=== PATIENT | male | born 1990 | race Caucasian/White ===

== ENCOUNTER 2017-01-13 14:42 | Inpatient (IN) | payer SELFPAY ==
[2017-01-13 14:45] VITALS: BMI 24.5
--- NOTE | 2017-01-13 16:29 | HP ---
COWS - Scale Resting Pulse: 0= [place] 80 or Below Sweatin=Flushed/Facial Moisture Restless Observation: 1= Difficult to Sit Still Pupil Size: 0= Normal to Room Light Bone or Joint Aches: 2= Severe Diffuse Aches Runny Nose/ Eye Tearin= Runny Nose/Eyes GI Upset > 30mins: 1= Stomach Cramp Tremor Observation: 2= Slight Tremor Visible Yawning Observation: 1= 1-2x During Session Anxiety or Irritability: 2=Irritable/Anxious Goose Flesh Skin: 0=Smooth Skin COWS Score: 13 Admission [facility] Chief Complaint: withdrawal sx Allergies/Adverse Reactions: Allergies Allergy/AdvReac Type Severity Reaction Status Date / Time No Known Allergies Allergy Verified 01/13/17 16:51 History of Present Illness: 26 years old male with long history of opiate, nicotine dependence, has chronic back pain, and depression is admitted to detox Exam Limitations: No Limitations - Ebola screening Have you traveled outside of the country in the last 21 days: No Have you had contact with anyone from an Ebola affected area: No Have you been sick,other than usual withdrawal symptoms: No Do you have a fever: No - Review of Systems Constitutional: Chills, Loss of Appetite, Changes in sleep, Unintentional Wgt. Loss, Unexplained wgt Loss EENT: reports: No Symptoms Reported Respiratory: reports: No Symptoms reported Cardiac: reports: No Symptoms Reported GI: reports: Nausea, Poor Appetite, Poor Fluid Intake, Indigestion, Abdominal cramping : reports: No Symptoms Reported Musculoskeletal: reports: Back Pain, Joint Pain, Muscle Pain, Neck Pain Integumentary: reports: Change in Color, Erythema (left hand) Neuro: reports: Tremors Endocrine: reports: No Symptoms Reported Hematology: reports: No Symptoms Reported Psychiatric: reports: Judgement Intact, Orientated x3, Anxious, Depressed Other Systems: Reviewed and Negative Patient History - Patient Medical History Hx Anemia: No Hx Asthma: No Hx Chronic Obstructive Pulmonary Disease (COPD): No Hx Cancer: No Hx Cardiac Disorders: No Hx Congestive Heart Failure: No Hx Hypertension: No Hx Hypercholesterolemia: No Hx Pacemaker: No HX Cerebrovascular Accident: No Hx Seizures: No Hx Dementia: No Hx Diabetes: No Hx Gastrointestinal Disorders: Yes Hx Liver Disease: No Hx Genitourinary Disorders: No Hx Sexually Transmitted Disorders: No Hx Renal Disease (ESRD): No Hx Thyroid Disease: No Hx Human Immunodeficiency Virus (HIV): No (TESTED LAST 2014 NEGATIVE) Hx Hepatitis C: No Hx Depression: Yes Hx Suicide Attempt: No Hx Bipolar Disorder: No Hx Schizophrenia: No - Patient Surgical History Past Surgical History: Yes Hx Neurologic Surgery: No Hx Cataract Extraction: No Hx Cardiac Surgery: No Hx Lung Surgery: No Hx Breast Surgery: No Hx Breast Biopsy: No Hx Abdominal Surgery: No Hx Appendectomy: Yes (1993) Hx Cholecystectomy: No Hx Genitourinary Surgery: No Hx Orthopedic Surgery: No Anesthesia Reaction: No - PPD History Previous Implant?: Yes Documented Results: Negative w/proof Implanted On Prior [facility] Admission?: Yes Date: 12/18/15 Results: 0 mm PPD to be Administered?: Yes - Smoking Cessation Smoking history: Current every day smoker Have you smoked in the past 12 months: Yes Aproximately how many cigarettes per day: 20 Cigars Per Day: 0 Hx Chewing Tobacco Use: No Initiated information on smoking cessation: Yes 'Breaking Loose' booklet given: 01/13/17 - Substance & Tx. History Hx Alcohol Use: No Hx Substance Use: Yes Substance Use Type: Cocaine, Opiates Hx Substance Use Treatment: Yes - Substances Abused Heroin Route: Injection Frequency: Daily Amount used: 20 bags Age of first use: 19 Date of Last Use: 01/13/17 Cocaine Route: Injection Frequency: Daily Amount used: $40 Age of first use: 14 Date of Last Use: 01/11/17 Family Disease History - Family Disease History Family Disease History: [place]: Father (LUNG), Other: Mother (ALCOHOLIC) Admission Physical Exam BHS - Vital Signs Vital Signs: Vital Signs - 24 hr 01/13/17 14:44 Temperature 96.1 F L Pulse Rate 62 Respiratory 16 Rate Blood Pressure 100/61 - Physical General Appearance: Yes: Appropriately Dressed, Mild Distress, Thin, Tremorous, Irritable, Sweating, Anxious HEENTM: Yes: Hearing grossly Normal, Normal ENT Inspection, Normocephalic, Normal Voice Respiratory: Yes: Chest Non-Tender, Lungs Clear, Normal Breath Sounds, No Respiratory Distress, No Accessory Muscle Use Neck: Yes: Supple, Trachea in good position Breast: Yes: Breasts Symetrical Cardiology: Yes: Regular Rhythm, Regular Rate, S1, S2 Abdominal: Yes: Non Tender, Soft, Increased Bowel Sounds Genitourinary: Yes: Within Normal Limits Back: Yes: Normal Inspection Musculoskeletal: Yes: full range of Motion, Gait Steady, Back pain, Muscle Pain Extremities: Yes: Normal Range of Motion, Non-Tender, Tremors Neurological: Yes: Fully Oriented, Alert, Motor Strength 5/5, Normal Response, Depressed Affect Integumentary: Yes: Warm, Track Gaines Lymphatic: Yes: Within Normal Limits - Diagnostic (1) Alcohol dependence with uncomplicated withdrawal Current Visit: Yes Status: Acute (2) Cocaine dependence, uncomplicated Current Visit: Yes Status: Chronic (3) GERD (gastroesophageal reflux disease) Current Visit: Yes Status: Chronic Qualifiers: Esophagitis presence: without esophagitis Qualified Code(s): K21.9 - Gastro-esophageal reflux disease without esophagitis (4) Nicotine dependence Current Visit: Yes Status: Acute Qualifiers: Nicotine product type: cigarettes Substance use status: in withdrawal Qualified Code(s): F17.213 - Nicotine dependence, cigarettes, with withdrawal (5) Weight loss Current Visit: Yes Status: Acute (6) Depression Current Visit: Yes Status: Suspected Qualifiers: Depression Type: dysthymia Qualified Code(s): F34.1 - Dysthymic disorder (7) Cellulitis and abscess of hand Current Visit: Yes Status: Acute (8) Chronic low back pain Current Visit: Yes Status: Chronic Qualifiers: Back pain laterality: bilateral Sciatica presence: without sciatica Qualified Code(s): M54.5 - Low back pain; G89.29 - Other chronic pain Cleared for Admission [facility] - Detox or Rehab [facility] Level of Care: Medically Managed Detox Regimen/Protocol: Methadone [facility] Breath Alcohol Content Breath Alcohol Content: 0 Urine Drug Screen - Results Drug Screen Negative: No Urine Drug Screen Results: LOTTIE-Cocaine, OPI-Opiates, OXY-Oxycodone
[2017-01-13] MEDS ORDERED: MAGNESIUM CITRATE 300 ML BOTTLE PO PRN (16:42)
[2017-01-13] MEDS ORDERED: MENTHOL/PHENOL 1 EACH UD MM PRN (16:42)
[2017-01-13] MEDS ORDERED: guaiFENesin/D-METHORPHAN HB 10 ML UNIT-DOSE CUPS PO PRN (16:42)
[2017-01-13] MEDS ORDERED: MAGNESIUM HYDROX 2400MG/30ML ORAL SUSPENSION 30 ML CUP PO PRN (16:42)
[2017-01-13] MEDS ORDERED: P-EPHED 60MG/TRIPROLIDI 2.5MG TABLET PO PRN (16:42)
[2017-01-13] MEDS ORDERED: LOPERAMIDE HCL 2 MG CAPSULE PO PRN (16:42)
[2017-01-13] MEDS ORDERED: METHADONE HCL 10 MG TABLET (FOR DETOX USE ONLY) PO ONE ×2 (18:15→23:00)
[2017-01-13] MEDS: diazePAM 5 MG TABLET PO PRN ×2 (19:29→23:51)
[2017-01-13] MEDS: NICOTINE POLACRILEX 2 MG GUM BC PRN ×2 (19:53→22:25)
[2017-01-13] MEDS: CYCLOBENZAPRINE HCL 10 MG TABLET (FP) PO PRN (22:25)
[2017-01-13] MEDS: RANITIDINE HCL 150 MG TABLET (FP) PO SCH (22:25)
[2017-01-13] MEDS: THIAMINE HCL 100 MG TABLET (FP) PO SCH (22:25)
[2017-01-13 22:45] LABS: URINE APPEARANCE CLEAR; URINE BILIRUBIN NEGATIVE (NEGATIVE); URINE BLOOD NEGATIVE (NEGATIVE); URINE COLOR AMBER; URINE GLUCOSE (UA) NEGATIVE (NEGATIVE); URINE KETONE TRACE (NEGATIVE); URINE LEUK ESTERASE NEGATIVE (NEGATIVE); URINE NITRITE NEGATIVE (NEGATIVE); URINE UROBILINOGEN 2.0 E.U/dl E.U./dl (0.2-1.0)
[2017-01-13 22:46] LABS: URINE PROTEIN 1+ (NEGATIVE)
[2017-01-13 22:57] LABS: CALCIUM OXALATE CRYSTALS RARE /hpf (NONE SEEN); URINE MUCUS MANY; URINE RBC 4 /hpf (0-3); URINE WBC 3 /hpf (3-5)
[2017-01-13] MEDS: AMOXICILLIN 500 MG CAPSULE (FP) PO SCH (23:50)
[2017-01-14] MEDS: diazePAM 5 MG TABLET PO PRN ×4 (05:38→21:21)
[2017-01-14] MEDS: MAG HYDROX/AL HYDROX/SIMETH 30 ML UNIT-DOSE CUP PO PRN ×2 (06:05→15:11)
[2017-01-14] MEDS: NICOTINE POLACRILEX 2 MG GUM BC PRN ×6 (06:05→22:33)
--- NOTE | 2017-01-14 08:25 | EKG ---
Test Reason : Blood Pressure : / mmHG Vent. Rate : 060 BPM Atrial Rate : 060 BPM P-R Int : 138 ms QRS Dur : 094 ms QT Int : 414 ms P-R-T Axes : 072 084 071 degrees QTc Int : 414 ms NORMAL SINUS RHYTHM NORMAL ECG NO PREVIOUS ECGS AVAILABLE Confirmed by LEILANI BERNARD MD ([id number]) on 01/14/2017 8:25:00 AM Referred By: Confirmed By:LEILANI BERNARD MD
[2017-01-14] MEDS ORDERED: METHADONE HCL 10 MG TABLET (FOR DETOX USE ONLY) PO ONE (10:00)
[2017-01-14] MEDS: PRENATAL VITAMINS W/ FOLIC ACID TABLET (FP) PO SCH (10:48)
[2017-01-14] MEDS: AMOXICILLIN 500 MG CAPSULE (FP) PO SCH ×2 (10:48→22:31)
[2017-01-14] MEDS: RANITIDINE HCL 150 MG TABLET (FP) PO SCH ×2 (10:48→22:32)
[2017-01-14] MEDS: NICOTINE 21 MG/24 HOURS TOPICAL PATCH TD SCH (10:49)
[2017-01-14] MEDS: LIDOCAINE 5% TOPICAL PATCH TP SCH (10:49)
[2017-01-14 10:55] LABS: ALBUMIN 3.9 g/dl (3.4-5.0); ALK PHOS 84 U/L (45-117); ANION GAP 10 (8-16); BILIRUBIN,TOTAL 0.4 mg/dL (0.2-1.0); CALCIUM 9.5 mg/dL (8.5-10.1); CO2 27 mmol/L (21-32); COCKROFT - GAULT 137.98; CREATININE 0.9 mg/dL (0.7-1.3); GLUCOSE,RANDOM 86 mg/dL (74-106); MCH 30.2 pg (25.7-33.7); MCHC 33.3 g/dl (32.0-35.9); MEAN CELL VOLUME 90.8 fl (80-96); MEAN PLT VOLUME 7.3 fl (7.5-11.1); PLATELET COUNT 270 K/MM3 (134-434); RDW 12.9 % (11.9-15.9); SGOT/AST 17 U/L (15-37); SGPT/ALT 21 U/L (12-78); TOT PROT 7.6 g/dl (6.4-8.2)
[2017-01-14] MEDS: ACETAMINOPHEN 325 MG TABLET (FP) PO PRN (11:35)
--- NOTE | 2017-01-14 14:24 | PN ---
BHS COWS - Scale Resting Pulse: 0= [place] 80 or Below Sweatin= Chills/Flushing Restless Observation: 1= Difficult to Sit Still Pupil Size: 0= Normal to Room Light Bone or Joint Aches: 2= Severe Diffuse Aches Runny Nose/ Eye Tearin= Runny Nose/Eyes GI Upset > 30mins: 1= Stomach Cramp Tremor Observation of Outstretched Hands: 2= Slight Tremor Visible Yawning Observation: 1= 1-2x During Session Anxiety or Irritability: 2=Irritable/Anxious Goose Flesh Skin: 3=Piloerection COWS Score: 15 S Progress Note (SOAP) Subjective: Interrupted sleep, H/A, Body Aches, Sweating. Objective: PT. A & O X 3. 01/14/17 14:21 Vital Signs Temperature 99 F 01/14/17 09:57 Pulse Rate 70 01/14/17 09:57 Respiratory Rate 18 01/14/17 09:57 Blood Pressure 126/70 01/14/17 09:57 O2 Sat by Pulse Oximetry (%) Laboratory Last Values WBC 6.0 K/mm3 (4.0-10.0) 01/14/17 07:00 RBC 4.71 M/mm3 (4.00-5.60) 01/14/17 07:00 Hgb 14.2 GM/dL (11.7-16.9) 01/14/17 07:00 Hct 42.8 % (35.4-49) 01/14/17 07:00 MCV 90.8 fl (80-96) 01/14/17 07:00 MCHC 33.3 g/dl (32.0-35.9) 01/14/17 07:00 RDW 12.9 % (11.9-15.9) 01/14/17 07:00 Plt Count 270 K/MM3 (134-434) 01/14/17 07:00 MPV 7.3 fl (7.5-11.1) L 01/14/17 07:00 Sodium 141 mmol/L (136-145) 01/14/17 07:00 Potassium 3.9 mmol/L (3.5-5.1) 01/14/17 07:00 Chloride 104 mmol/L (98-107) 01/14/17 07:00 Carbon Dioxide 27 mmol/L (21-32) D 01/14/17 07:00 Anion Gap 10 (8-16) 01/14/17 07:00 BUN 7 mg/dL (7-18) D 01/14/17 07:00 Creatinine 0.9 mg/dL (0.7-1.3) 01/14/17 07:00 Creat Clearance w eGFR > 60 (>60) 01/14/17 07:00 Random Glucose 86 mg/dL (74-106) D 01/14/17 07:00 Calcium 9.5 mg/dL (8.5-10.1) 01/14/17 07:00 Total Bilirubin 0.4 mg/dL (0.2-1.0) D 01/14/17 07:00 AST 17 U/L (15-37) D 01/14/17 07:00 ALT 21 U/L (12-78) D 01/14/17 07:00 Alkaline Phosphatase 84 U/L (45-117) 01/14/17 07:00 Total Protein 7.6 g/dl (6.4-8.2) 01/14/17 07:00 Albumin 3.9 g/dl (3.4-5.0) 01/14/17 07:00 Urine Color Cynthia 01/13/17 20:00 Urine Appearance Clear 01/13/17 20:00 Urine pH 5.0 (5.0-8.0) D 01/13/17 20:00 Ur Specific Mc[place]osh 1.031 (1.001-1.035) 01/13/17 20:00 Urine Protein 1+ (NEGATIVE) H 01/13/17 20:00 Urine Glucose (UA) Negative (NEGATIVE) 01/13/17 20:00 Urine Ketones Trace (NEGATIVE) H 01/13/17 20:00 Urine Blood Negative (NEGATIVE) 01/13/17 20:00 Urine Nitrite Negative (NEGATIVE) 01/13/17 20:00 Urine Bilirubin Negative (NEGATIVE) 01/13/17 20:00 Urine Urobilinogen 2.0 e.u/dl E.U./dl (0.2-1.0) 01/13/17 20:00 Ur Leukocyte Esterase Negative (NEGATIVE) 01/13/17 20:00 Urine RBC 4 /hpf (0-3) 01/13/17 20:00 Urine WBC 3 /hpf (3-5) 01/13/17 20:00 Calcium Oxalate Crystal Rare /hpf (NONE SEEN) 01/13/17 20:00 Urine Mucus Many 01/13/17 20:00 LABS NOTED. Assessment: 01/14/17 14:24 WITHDRAWAL SYMPTOMS. Plan: CONTINUE DETOX. ADVISED PATIENT TO FOLLOW-UP WITH STRAP SETTER / REHAB MEDICAL PROVIDER AFTER DISCHARGE FROM DETOX FOR GENERAL MEDICAL ASSESSMENT AND FOR ABNORMAL ADMISSION LAB VALUES.
--- NOTE | 2017-01-14 14:46 | CONSULT ---
[facility] Psychiatric Consult - Data Date of interview: 01/14/17 Admission source: [facility] Identifying data: Another admission to [facility] for this 26 y/o male seeking detox treatment on for heroin and cocaine dependence.Patient is single without children,domiciled,currrently unemployed and supported on odd jobs. Substance Abuse History: - Smoking Cessation. Smoking history: Current every day smoker. Have you smoked in the past 12 months: Yes. Aproximately how many cigarettes per day: 20. Cigars Per Day: 0. Hx Chewing Tobacco Use: No. Initiated information on smoking cessation: Yes. 'Breaking Loose' booklet given : 01/13/17. - Substance & Tx. History. Hx Alcohol Use: No. Hx Substance Use: Yes. Substance Use Type: Cocaine, Opiates. Hx Substance Use Treatment: Yes. - Substances Abused. Heroin. Route: Injection. Frequency: Daily. Amount used: 20 bags. Age of first use: 19. Date of Last Use: 01/13/17. Cocaine. Route: Injection. Frequency: Daily. Amount used: $40. Age of first use: 14. Date of Last Use: 01/11/17. Confirmed by patient. Medical History: Patient endorses good general health.Noted past history of appendectomy. Psychiatric History: Patient denies. Physical/Sexual Abuse/Trauma History: Patient denies. Additional Comment: Urine Drug Screen Results: LOTTIE-Cocaine, OPI-Opiates, OXY- Oxycodone.Noted. Mental Status Exam - Mental Status Exam Alert and Oriented to: Time, Place, Person Cognitive Function: Good Patient Appearance: Well Groomed Mood: Hopeful, Euthymic Affect: Appropriate, Normal Range Patient Behavior: Fatigued, Appropriate, Cooperative Speech Pattern: Clear, Appropriate Voice Loudness: Normal Thought Process: Goal Oriented Thought Disorder: Not Present Hallucinations: Denies Suicidal Ideation: Denies Homicidal Ideation: Denies Insight/Judgement: Poor Sleep: Poorly, Difficulty falling asleep Appetite: Good Muscle strength/Tone: Normal Gait/Station: Normal Psychiatric Findings - Problem List ([place] 1, 2,3) (1) Cocaine dependence, uncomplicated Current Visit: Yes Status: Acute (2) Opioid dependence with withdrawal Current Visit: Yes Status: Acute (3) Substance induced mood disorder Current Visit: Yes Status: Acute (4) Nicotine dependence Current Visit: Yes Status: Acute Qualifiers: Nicotine product type: cigarettes Substance use status: in withdrawal Qualified Code(s): F17.213 - Nicotine dependence, cigarettes, with withdrawal (5) Chronic low back pain Current Visit: Yes Status: Chronic Qualifiers: Back pain laterality: bilateral Sciatica presence: without sciatica Qualified Code(s): M54.5 - Low back pain; G89.29 - Other chronic pain (6) GERD (gastroesophageal reflux disease) Current Visit: Yes Status: Chronic Qualifiers: Esophagitis presence: without esophagitis Qualified Code(s): K21.9 - Gastro-esophageal reflux disease without esophagitis (7) Insomnia Current Visit: Yes Status: Acute - Initial Treatment Plan Initial Treatment Plan: Psychoeducation.Detoxification.Ambien 10 mg po hs prn.Patient is made aware of potential for parasomnias.He agrees with this plan of care.Observation.
[2017-01-14] MEDS ORDERED: ZOLPIDEM TARTRATE 10 MG TABLET (PARK CARE ONLY) PO PRN (14:48)
[2017-01-14] MEDS: CYCLOBENZAPRINE HCL 10 MG TABLET (FP) PO PRN ×2 (15:11→21:25)
[2017-01-14] MEDS ORDERED: cloNIDine HCL 0.1 MG TABLET PO ONE (19:14)
[2017-01-14] MEDS: THIAMINE HCL 100 MG TABLET (FP) PO SCH (22:32)
[2017-01-14] MEDS: diphenhydrAMINE HCL 50 MG CAPSULE PO PRN (22:33)
[2017-01-15] MEDS: diazePAM 5 MG TABLET PO PRN ×4 (01:26→15:24)
[2017-01-15] MEDS: diphenhydrAMINE HCL 50 MG CAPSULE PO PRN (01:27)
[2017-01-15] MEDS: ACETAMINOPHEN 325 MG TABLET (FP) PO PRN (01:27)
[2017-01-15] MEDS: CYCLOBENZAPRINE HCL 10 MG TABLET (FP) PO PRN (06:04)
[2017-01-15] MEDS ORDERED: METHADONE HCL 5 MG TABLET (FOR DETOX USE ONLY) PO ONE (10:00)
[2017-01-15] MEDS: PRENATAL VITAMINS W/ FOLIC ACID TABLET (FP) PO SCH (10:58)
[2017-01-15] MEDS: AMOXICILLIN 500 MG CAPSULE (FP) PO SCH (10:58)
[2017-01-15] MEDS: NICOTINE POLACRILEX 2 MG GUM BC PRN ×3 (10:59→15:26)
[2017-01-15] MEDS: LIDOCAINE 5% TOPICAL PATCH TP SCH (10:59)
[2017-01-15] MEDS: NICOTINE 21 MG/24 HOURS TOPICAL PATCH TD SCH (10:59)
[2017-01-15] MEDS: RANITIDINE HCL 150 MG TABLET (FP) PO SCH (10:59)
--- NOTE | 2017-01-15 11:31 | PN ---
BHS COWS - Scale Resting Pulse: 0= [place] 80 or Below Sweatin=Flushed/Facial Moisture Restless Observation: 1= Difficult to Sit Still Pupil Size: 0= Normal to Room Light Bone or Joint Aches: 2= Severe Diffuse Aches Runny Nose/ Eye Tearin= Runny Nose/Eyes GI Upset > 30mins: 2= Nausea/Diarrhea Tremor Observation of Outstretched Hands: 2= Slight Tremor Visible Yawning Observation: 1= 1-2x During Session Anxiety or Irritability: 2=Irritable/Anxious Goose Flesh Skin: 0=Smooth Skin COWS Score: 14 BHS Progress Note (SOAP) Subjective: Anxiety,tremors,sweating,interrupted sleep,restless,muscle aches. Objective: 01/15/17 11:30 Vital Signs - 8 hr 01/15/17 01/15/17 06:37 09:16 Temperature 96.7 F L 96.7 F L Pulse Rate 80 74 Respiratory 18 18 Rate Blood Pressure 132/91 137/89 Laboratory Tests 01/13/17 01/14/17 01/14/17 20:00 07:00 07:00 WBC 6.0 RBC 4.71 Hgb 14.2 Hct 42.8 MCV 90.8 MCHC 33.3 RDW 12.9 Plt Count 270 MPV 7.3 L Sodium 141 Potassium 3.9 Chloride 104 Carbon Dioxide 27 D Anion Gap 10 BUN 7 D Creatinine 0.9 Creat Clearance w eGFR > 60 Random Glucose 86 D Calcium 9.5 Total Bilirubin 0.4 D AST 17 D ALT 21 D Alkaline Phosphatase 84 Total Protein 7.6 Albumin 3.9 Urine Color Cynthia Urine Appearance Clear Urine pH 5.0 D Ur Specific [place] 1.031 Urine Protein 1+ H Urine Glucose (UA) Negative Urine Ketones Trace H Urine Blood Negative Urine Nitrite Negative Urine Bilirubin Negative Urine Urobilinogen 2.0 e.u/dl Ur Leukocyte Esterase Negative Urine RBC 4 Urine WBC 3 Calcium Oxalate Crystal Rare Urine Mucus Many RPR Titer 01/14/17 07:00 WBC RBC Hgb Hct MCV MCHC RDW Plt Count MPV Sodium Potassium Chloride Carbon Dioxide Anion Gap BUN Creatinine Creat Clearance w eGFR Random Glucose Calcium Total Bilirubin AST ALT Alkaline Phosphatase Total Protein Albumin Urine Color Urine Appearance Urine pH Ur Specific [place] Urine Protein Urine Glucose (UA) Urine Ketones Urine Blood Urine Nitrite Urine Bilirubin Urine Urobilinogen Ur Leukocyte Esterase Urine RBC Urine WBC Calcium Oxalate Crystal Urine Mucus RPR Titer Nonreactive labs noted Assessment: 01/15/17 11:30 Withdrawal sx. Plan: Continue detox
--- NOTE | 2017-01-15 17:11 | DS ---
[facility] Detox Discharge Summary Admission Date: 01/13/17 Discharge Date: 01/15/17 - History Present History: Alcohol Dependence, Cannabis Dependence, Cocaine Dependence, Opioid Dependence - Physical Exam Results Vital Signs: Vital Signs Temperature 98.0 F 01/15/17 13:51 Pulse Rate 99 H 01/15/17 13:51 Respiratory Rate 20 01/15/17 13:51 Blood Pressure 123/77 01/15/17 13:51 O2 Sat by Pulse Oximetry (%) - Treatment Hospital Course: Detox Protocol Followed - Medication Discharge Medications: Ambulatory Orders NK [No Known Home Medication] 11/08/14 - Diagnosis (1) Alcohol dependence with uncomplicated withdrawal Current Visit: Yes Status: Chronic (2) Cellulitis and abscess of hand Current Visit: Yes Status: Chronic (3) Cocaine dependence, uncomplicated Current Visit: Yes Status: Chronic (4) Nicotine dependence Current Visit: Yes Status: Chronic Qualifiers: Nicotine product type: cigarettes Substance use status: uncomplicated Qualified Code(s): F17.210 - Nicotine dependence, cigarettes, uncomplicated (5) Opioid dependence with withdrawal Current Visit: Yes Status: Chronic (6) Chronic low back pain Current Visit: Yes Status: Chronic Qualifiers: Back pain laterality: bilateral Sciatica presence: without sciatica Qualified Code(s): M54.5 - Low back pain; G89.29 - Other chronic pain - AMA Did Patient Leave Against Medical Advice: Yes (wants to leave detox. )
[2017-01-15 17:36] VITALS: BP 133/87; PULSE 120; TEMP 97.6
[2017-01-16] MEDS ORDERED: METHADONE HCL 5 MG TABLET (FOR DETOX USE ONLY) PO ONE (10:00)
[2017-01-17] MEDS ORDERED: METHADONE HCL 10 MG TABLET (FOR DETOX USE ONLY) PO ONE (10:00)
[2017-01-18] MEDS ORDERED: METHADONE HCL 5 MG TABLET (FOR DETOX USE ONLY) PO ONE (06:00)
== END 2017-01-15 17:16 | disposition left against medical advice (07) | DRG 770 ==
LOC: YASAS 14:42 → Y3N 17:43
PROVIDERS: ADMIT Internal Medicine; ATTEND Internal Medicine
PROC: HZ2ZZZZ Detoxification Services for Substance Abuse Treatment (ICD-10-PCS; principal; 2017-01-13)
DX: F11.23 Opioid dependence with withdrawal (principal); F10.230 Alcohol dependence with withdrawal, uncomplicated; F14.20 Cocaine dependence, uncomplicated; F17.210 Nicotine dependence, cigarettes, uncomplicated; F19.24 Other psychoactive substance dependence with psychoactive substance-induced mood disorder; F32.9 Major depressive disorder, single episode, unspecified; L03.114 Cellulitis of left upper limb; L02.512 Cutaneous abscess of left hand; K21.9 Gastro-esophageal reflux disease without esophagitis; M54.5 Low back pain; G89.29 Other chronic pain; G47.00 Insomnia, unspecified; Z87.898 Personal history of other specified conditions
CPT/HCPCS: 36415; 80053; 81003; 81015; 85027; 86593; 93005; 93010